=== PATIENT | male | born 1955 | race African-American/Black ===

== ENCOUNTER 2025-05-11 16:14 | Emergency (ER) | payer MEDICARE, SELFPAY ==
[2025-05-11] VITALS (19 sets, daily range): BP systolic 94–131; BP diastolic 58–87; PULSE 82–97; RESP 20–37; TEMP 36.6; O2SAT 92–98
--- NOTE | ~2025-05-11 | CT_ITS ---
EXAMINATION: CT brain mavis brown, 05/11/2025 16:00 CDT HISTORY: code stroke COMPARISON: No comparisons available. Technique: Axial images obtained of the brain without contrast. One or more of the following dose reduction techniques were used: automated exposure control, adjustment of the mA and/or kV according to patient size, use of iterative reconstruction technique. Findings: Motion artifact limits evaluation but there is no gross acute infarct or hemorrhage. No midline shift or mass effect. No extra-axial fluid collections.Sequelae of previous surgery noted with craniotomy changes and encephalomalacia within the right frontoparietal lobes bilaterally. Mastoid air cells unremarkable. Sinuses and orbits unremarkable. No acute fracture. No significant facial or scalp soft tissue swelling evident. No radiopaque foreign body is seen. Impression: 1. Limited study. No acute hemorrhage or infarct identified Reviewed, dictated and finalized at location P. Impression: 1. Limited study. No acute hemorrhage or infarct identified
--- NOTE | ~2025-05-11 | XR_ITS ---
EXAMINATION: XR chest 1V portable COMPARISON: No comparisons available. HISTORY: code stroke FINDINGS: The lungs are clear, no effusion. No pneumothorax. Moderate cardiomegaly. Mediastinal and hilar contours are within normal limits. Bony thorax no acute abnormality. Miscellaneous: Left pacemaker. Impression: CHF Reviewed, dictated and finalized at location P. Impression: CHF
--- NOTE | ~2025-05-11 | CT_ITS ---
EXAMINATION: CTA brain carotid, 05/11/2025 17:25 CDT HISTORY: cva, r deficits COMPARISON: No comparisons available. TECHNIQUE: CTA scan with 3D Reconstructions of the brain and neck was performed with contrast Isovue 300, 92cc injected IV. One or more of the following dose reduction techniques were used: automated exposure control, adjustment of the mA and/or kV according to patient size, use of iterative reconstruction technique. Unless otherwise stated, incidental findings do not require dedicated follow up imaging FINDINGS: CTA brain: The noncontrast images demonstrate no hemorrhage. Visualized brain parenchyma and optic globes appear unremarkable with encephalomalacia redemonstrated involving the right and left frontal and parietal lobes with associated craniotomy changes Motion artifact limits evaluation. The basilar artery appears unremarkable. The right posterior cerebral artery stroke predominantly by the algaaciq of Alex. The left posterior cerebral artery is fed predominantly by the algaaciq of Alex. The right petrous and cavernous ICA segments are limited by motion. The right M1, M2 segments and their branches are unremarkable. The right A1 and A2 segments are unremarkable. The left petrous and cavernous ICA segments are limited by motion. Left M1, M2 segments and their branches are unremarkable. The left A1 and A2 segments are unremarkable. CTA NECK: The soft tissues appear unremarkable. Motion artifact limits evaluation. Lung apices demonstrate no acute process. No sclerotic or lytic lesions are identified. Moderate degenerative changes of the cervical spine. No gross sinusitis. Motion artifact limits evaluation. The visualized cervical segments of the vertebral arteries appear grossly unremarkable, the left vertebral artery appears dominant Right CCA unremarkable. Right ICA 10% stenosis from calcified plaque. Left CCA unremarkable. Left proximal ICA limited but no critical stenosis identified. IMPRESSION: 1. Limited study. No critical stenosis or occlusion identified. No gross aneurysm. 2. Sequelae of previous surgery involving the brain detailed above. If there is concern for a parenchymal process contrast-enhanced MRI is recommended Reviewed, dictated and finalized at location P. IMPRESSION: 1. Limited study. No critical stenosis or occlusion identified. No gross aneury sm. 2. Sequelae of previous surgery involving the brain detailed above. If there is concern for a parenchymal process contrast-enhanced MRI is recommended
--- NOTE | 2025-05-11 16:34 | ED.NEUROSD ---
HPI - Neuro Symptoms/Deficit General Chief Complaint: Suspected CVA Stated Complaint: code stroke Time Seen by Provider: 05/11/25 16:16 Source: EMS Mode of arrival: EMS Limitations: altered mental status History of Present Illness HPI Narrative: This is a 70 yo male with history of CVA who presents the ED for altered mental status. Per EMS, patient was at rehab facility and was found to have altered mental status with new right-sided deficits to his face. His last known well was approximately 1330 (3 hours ago). Patient apparently a recent stroke which he is in rehab for at this time. This occurred at [facility]. He is currently on Eliquis for this. History is otherwise limited at this time due to patient's altered mental status. Related Data Allergies Allergy/AdvReac Type Severity Reaction Status Date / Time cephalexin AdvReac Unknown Unknown Verified 05/11/25 19:50 Review of Systems Review of Systems: ROS unobtainable: Yes unobtainable due to mental status Exam Narrative: APPEARANCE: No acute distress, nontoxic, resting in bed EYES: EOMI HEENT: Normocephalic, atraumatic, OMM RESPIRATORY: No respiratory distress Clear to auscultation bilaterally with no rhonchi wheezing or rales. CARDIOVASCULAR: Regular rate and rhythm without murmurs rubs or gallops. ABDOMINAL: Obese. Soft, nontender, nondistended, no rebound or guarding MUSCULOSKELETAl: Moves all extremities. No clubbing, cyanosis or edema. NEURO: Awake, facial droop with forehead involvement right. Unable to follow commands due to altered mental status. Oriented x1. NIHSS 15 buty somewhat limited due to inability to participate in exam SKIN:: Warm, dry. No rashes lesions or abrasions PSYCHIATRIC: Normal affect/mood, Course Vital Signs Vital signs: Vital Signs Pulse Rate 94 05/11/25 16:40 Respiratory Rate 20 05/11/25 16:40 Blood Pressure 98/67 L 05/11/25 16:40 Pulse Oximetry 96 05/11/25 16:40 Temperature 98.4 F 05/12/25 09:15 Pulse Rate 79 05/12/25 09:15 Respiratory Rate 23 H 05/12/25 09:15 Blood Pressure 103/58 L 05/12/25 09:15 Pulse Oximetry 95 05/12/25 09:15 Oxygen Delivery Room Air 05/11/25 16:43 MDM - Neuro Symptoms/Deficit MDM Narrative Medical decision making narrative: 70-year-old male presenting from rehab concerns for altered mental status and new onset stroke. On initial evaluation, patient was alert oriented x1 able to state his name not able to state anything beyond the word yes. He did have right-sided deficit. Patient is not a candidate for thrombolysis due to current eliquis treatment as well as recent stroke 11 days ago Discussed the case with Dr. Campa, stroke neurologist at [facility], did not think that patient required tertiary care, agrees that he is not a candidate for thrombolysis. On further discussion with family, the right-sided deficit may be baseline due to the recent stroke. As patient is on Eliquis he will not be given any additional antiplatelet medications at this time. I did reach out to neurology, Dr. Herrera, neurology, did agree that patient needed to be admitted but noted that there will be no neurology coverage tomorrow. I discussed this with the hospitalist and they will not admit the patient without neurology coverage at this time. Because of this, patient will require transfer for Neurology evaluation. Patient will be transferred to [facility] with Dr. Campa as the accepting physician and is currently pending bed availability. Of note, patient was found to have a leukocytosis at 14.6. UA was clear. He does have a decubitus ulcer which may be a potential source of infection. He was given vanc/Zosyn for prophylaxis of metabolic encephalopathy due to potential infection. Patient signed out to Dr. Lombardi pending transfer. CRITICAL CARE Indication: Severe encephalopathy, stroke Time type: intermittent I provided a total of 35 minutes of critical care excluding separately billable procedures. This includes time w/ EMS, initial bedside evaluation, reviewing old records, review of testing done while under my care, discussion w/ the family, nurses, managed services sales consultant and guiding the patient?s care while in the emergency department. Differential Diagnosis Differential diagnosis: Likely delirium, subarachnoid hemorrhage and cerebrovascular accident Medical Records Attestation: I reviewed the patient's medical records. Lab Data Attestation: I reviewed the patient's lab results. 05/11/25 16:48 05/12/25 08:20 Labs: Lab Results 05/11/25 05/11/25 05/11/25 Range/Units 16:48 17:04 18:14 WBC 14.5 H (4.5-10.0) K/mm3 RBC 3.82 L (4.6-6.20) M/mm3 Hgb 10.8 L (14.0-18.0) g/dL Hct 33.6 L (42.0-52.0) % MCV 88.0 (80-100) fl MCH 28.3 (26-34) pg MCHC 32.1 (32-36) g/dl RDW 12.5 (11.5-14.5) % Plt Count 313 (150-375) k/mm3 MPV 8.9 (7.4-10.4) fl Immature Gran % (Auto) 0.8 H (0-0.5) % Neut % (Auto) 79.4 H (45.5-73.1) % Lymph % (Auto) 8.5 L (18.3-44.2) % Lucas % (Auto) 10.3 H (2.6-8.5) % Eos % (Auto) 0.6 (0-4.4) % Baso % (Auto) 0.4 (0.2-1.2) % Lymph # (Auto) 1.23 (0.9-3.2) K/mm3 Lucas # (Auto) 1.5 H (0.1-0.6) K/mm3 Eos # (Auto) 0.1 (0-0.3) K/mm3 Baso # (Auto) 0.1 (0.0-0.1) K/mm3 Abs Immat Gran (auto) 0.11 H (0.00-0.031) K/mm3 Absolute Neuts (auto) 11.5 H (1.3-6.7) K/mm3 Absolute Nucleated RBC 0.000 (0.0-0.012) K/mm3 Nucleated RBC % 0.0 (0.0-0.2) % PT 19.5 H (11.1-14.7) Seconds INR 1.7 APTT 39.9 H (22.3-36.8) Seconds Sodium 135 L (137-145) mmol/L Potassium 3.9 (3.4-5.0) mmol/L Chloride 100 (98-107) mmol/L Carbon Dioxide 31 H (22-30) mmol/L Anion Gap 4 (4-12) mmol/L BUN 19 (9-20) mg/dL Creatinine 0.89 0.90 (0.7-1.3) mg/dL Estim Creat Clear Calc Not Reportable Not Reportable Estimated GFR > 60 > 60 (59 - ) Glucose 120 H (65-110) mg/dL Lactic Acid (0.7-2.0) mmol/L Calcium 9.5 (8.4-10.2) mg/dL Total Bilirubin 1.1 (0.2-1.3) mg/dL AST 41 (17-59) U/L ALT 13 (6-50) U/L Alkaline Phosphatase 131 H (38-126) U/L Troponin I 0.025 (0.000-0.034) ng/mL Total Protein 6.7 (6.3-8.2) g/dL Albumin 3.0 L (3.5-5.1) g/dL Urine Color Yellow (Yellow) Urine Appearance Clear (Clear) Urine pH 5.5 (5.0-9.0) Ur Specific [place] 1.034 (1.001-1.035) Urine Protein Negative (Negative) mg/dL Urine Glucose (UA) 3+ H (Negative) mg/dL Urine Ketones Negative (Negative) mg/dL Ur Blood (Man) Negative (Negative) Urine Nitrate Negative (Negative) Urine Bilirubin Negative (Negative) Urine Urobilinogen 2.0 H (<2.0) mg/dL Leukocyte Esterase Rfl Negative (Negative) RAMEZ/UL 05/11/25 05/12/25 Range/Units 19:03 08:20 WBC (4.5-10.0) K/mm3 RBC (4.6-6.20) M/mm3 Hgb (14.0-18.0) g/dL Hct (42.0-52.0) % MCV (80-100) fl MCH (26-34) pg MCHC (32-36) g/dl RDW (11.5-14.5) % Plt Count (150-375) k/mm3 MPV (7.4-10.4) fl Immature Gran % (Auto) (0-0.5) % Neut % (Auto) (45.5-73.1) % Lymph % (Auto) (18.3-44.2) % Lucas % (Auto) (2.6-8.5) % Eos % (Auto) (0-4.4) % Baso % (Auto) (0.2-1.2) % Lymph # (Auto) (0.9-3.2) K/mm3 Lucas # (Auto) (0.1-0.6) K/mm3 Eos # (Auto) (0-0.3) K/mm3 Baso # (Auto) (0.0-0.1) K/mm3 Abs Immat Gran (auto) (0.00-0.031) K/mm3 Absolute Neuts (auto) (1.3-6.7) K/mm3 Absolute Nucleated RBC (0.0-0.012) K/mm3 Nucleated RBC % (0.0-0.2) % PT (11.1-14.7) Seconds INR APTT (22.3-36.8) Seconds Sodium (137-145) mmol/L Potassium (3.4-5.0) mmol/L Chloride (98-107) mmol/L Carbon Dioxide (22-30) mmol/L Anion Gap (4-12) mmol/L BUN (9-20) mg/dL Creatinine 0.90 (0.7-1.3) mg/dL Estim Creat Clear Calc 96 Estimated GFR > 60 (59 - ) Glucose (65-110) mg/dL Lactic Acid 1.5 (0.7-2.0) mmol/L Calcium (8.4-10.2) mg/dL Total Bilirubin (0.2-1.3) mg/dL AST (17-59) U/L ALT (6-50) U/L Alkaline Phosphatase (38-126) U/L Troponin I (0.000-0.034) ng/mL Total Protein (6.3-8.2) g/dL Albumin (3.5-5.1) g/dL Urine Color (Yellow) Urine Appearance (Clear) Urine pH (5.0-9.0) Ur Specific [place] (1.001-1.035) Urine Protein (Negative) mg/dL Urine Glucose (UA) (Negative) mg/dL Urine Ketones (Negative) mg/dL Ur Blood (Man) (Negative) Urine Nitrate (Negative) Urine Bilirubin (Negative) Urine Urobilinogen (<2.0) mg/dL Leukocyte Esterase Rfl (Negative) RAMEZ/UL Imaging Data Attestation: I personally reviewed and interpreted this imaging study as follows: Radiologist's impression: Impressions Head CT 05/11/25 16:26 Impression: 1. Limited study. No acute hemorrhage or infarct identified Chest X-Ray 05/11/25 17:31 Impression: CHF Head/Neck CTA 05/11/25 17:37 IMPRESSION: 1. Limited study. No critical stenosis or occlusion identified. No gross aneurysm. 2. Sequelae of previous surgery involving the brain detailed above. If there is concern for a parenchymal process contrast-enhanced MRI is recommended Discharge Plan Discharge Clinical Impression: Facial droop Altered mental status Qualifiers: Altered mental status type: unspecified Qualified Code(s): R41.82 - Altered mental status, unspecified Leukocytosis Qualifiers: Leukocytosis type: unspecified Qualified Code(s): D72.829 - Elevated white blood cell count, unspecified Patient Disposition: Acute Care Hospital Condition: Serious Patient Language: Turkmen Follow-up/Referrals: Clair,Kelly [Other]
--- NOTE | 2025-05-11 16:40 | ECG_ITS ---
Test Date: 2025-05-11 16:40:49 Measurements Intervals [place] Rate: 85 P: 0 PA: 0 QRS: 146 QRSD: 175 T: -12 QT: 429 QTc: 511 Interpretive Statements ELECTRONIC VENTRICULAR PACEMAKER WITH FUSION COMPLEX BASELINE ARTIFACT- I, II, III, AVR, AVL, AVF, V1-V6 NO FURTHER INTERPRETATION IS POSSIBLE ATYPICAL ECG No previous ECG available for comparison Electronically Signed On 05-12-2025 08:30:15 CDT by Jalen Jones D.O.
[2025-05-11 16:53] LABS: Hematocrit 33.6 % (42.0-52.0); Hemoglobin 10.8 g/dL (14.0-18.0); Immature Granulocyte Percent A 0.8 % (0-0.5); Lymphocytes Absolute Auto 1.23 K/mm3 (0.9-3.2); Mean Corpuscular HGB Conc 32.1 g/dl (32-36); Mean Corpuscular Hemoglobin 28.3 pg (26-34); Mean Corpuscular Volume 88.0 fl (80-100); Nucleated Red Blood Cells Absolute Auto 0.000 K/mm3 (0.0-0.012); Nucleated Red Blood Cells Perc 0.0 % (0.0-0.2); Platelet Count Result 313 k/mm3 (150-375); Red Blood Count 3.82 M/mm3 (4.6-6.20); White Blood Count 14.5 K/mm3 (4.5-10.0)
[2025-05-11 17:08] LABS: Alanine Aminotransferase 13 U/L (6-50); Albumin Level 3.0 g/dL (3.5-5.1); Alkaline Phosphatase 131 U/L (38-126); Anion Gap 4 mmol/L (4-12); Aspartate Amino Transferase 41 U/L (17-59); Bilirubin,Total 1.1 mg/dL (0.2-1.3); Blood Urea Nitrogen 19 mg/dL (9-20); Calcium 9.5 mg/dL (8.4-10.2); Carbon Dioxide 31 mmol/L (22-30); Chloride 100 mmol/L (98-107); Estimated Glomerular Filt Rate > 60; Glucose 120 mg/dL (65-110); Potassium 3.9 mmol/L (3.4-5.0); Sodium 135 mmol/L (137-145); Total Protein 6.7 g/dL (6.3-8.2)
[2025-05-11 17:09] LABS: INR 1.7; Prothrombin Time 19.5 Seconds (11.1-14.7)
[2025-05-11 17:10] LABS: Partial Thromboplastin Time 39.9 Seconds (22.3-36.8)
[2025-05-11 17:18] LABS: Troponin I 0.025 ng/mL (0.000-0.034)
[2025-05-11 17:23] LABS: Estimated Glomerular Filt Rate > 60
--- OUTSIDE RECORDS SUMMARY | 2025-05-11 17:38 | XMS_ITS | Clinical Summary ---
Author Organization [facility] Address [address] [place] [address] Care Team Providers Care Community Service Coordinator Name Role Phone Daniel Navarrete Primary Care Provider Source Comments [facility],non-owned Affiliates and Associated Physician Practices is amultiple site organization consisting of ambulatory clinics and hospital sitesin [place], [place], [place] and [place]. This disclosure is being madepursuant to the Care Everywhere program and may not contain all information available regarding this patient. Last updated 18.[facility] Allergies No known active allergies Medications * Be aware that medications may not be up to date on this document. Alwaysverify current medications with the patient. lisinopril (PRINIVIL; ZESTRIL) 40 MG tablet Take 40 mg by mouth DAILY. 7 Active hydroCHLOROthi azide (MICROZIDE) 12.5 MG capsule Take 12.5 mg by mouth DAILY. 7 Active aspirin (ASPIRIN) 81 MG tablet Take 81 mg by mouth DAILY. 7 Active amLODIPine (NORVASC) 10 MG tablet Take 10 mg by mouth DAILY. 7 Active tamsulosin (FLOMAX) 0.4 MG capsule Take 0.4 mg by mouth once daily Active metoprolol tartrate (LOPRESSOR) 25 MG tablet Take 25 mg by mouth 2 times daily 9 Active levETIRAcetam (KEPPRA) 500 MG tablet Take 1 tablet by mouth every 12 hours 60 tablet 2 0 Active acetaminophen (TYLENOL) 325 MG tablet Take 2 tablets by mouth every 6 hours as needed for Fever or Pain Maximum allowable Acetaminophen amount = 4 Grams (4000 mg) / 24 hours. 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 Malignant neoplasm of prostate 05/15/2019 Claustrophobia 12/27/2016 Essential hypertension 01/22/2014 CHUY (obstructive sleep apnea) 01/22/2014 Social History Tobacco Use Types Packs/Day Years Used Date Smoking Tobacco: Former Smokeless Tobacco: Never Alcohol Use Standard Drinks/Week Comments No 0 (1 standard drink = 0.6 oz pur e alcohol) Sex and Gender Information Value Date Recorded Sex Assigned at Not on file Legal Sex Male 5:13 PM TEXTILE CONSERVATOR Gender Identity Not on file Sexual Orientation Not on file Last Filed Vital Signs Vital Sign Reading Time Taken Comments Blood Pressure 147/82 08/04/2020 12:09 PM TEXTILE CONSERVATOR Pulse 85 08/04/2020 4:27 PM TEXTILE CONSERVATOR Temperature 36.4 C (97.6 F) 08/04/2020 12:09 PM TEXTILE CONSERVATOR Respiratory Rate 20 08/04/2020 12:09 PM TEXTILE CONSERVATOR Oxygen Saturation 95% 08/04/2020 12:09 PM TEXTILE CONSERVATOR Inhaled Oxygen Concentration - - Weight 167.8 kg (370 lb) 08/04/2020 12:09 PM TEXTILE CONSERVATOR Height 172.7 cm (5' 8) 08/04/2020 12:09 PM TEXTILE CONSERVATOR Body Mass Index 56.26 08/04/2020 12:09 PM TEXTILE CONSERVATOR Plan of Treatment Health Maintenance Due Date Last Done Comments COLOGUARD (AGES 45-75) - COLON CA SCREENING 1953 COLON MONITORING 1953 COLONOSCOPY - COLON CA SCREENING 1953 CT COLONOGRAPHY - COLON CA SCREENING 1953 Colorectal Cancer Screening 1953 FIT - COLON CA SCREENING 1953 FLEX SIG - COLON CA SCREENING 1953 LIPID TESTING 1953 HEPATITIS C SCREENING 03/03/1971 DTAP/TDAP/TD VACCINES (1 - Tdap) 1972 PNEUMOCOCCAL VACCINE 50+ (1 of 1 - PCV) 2003 ZOSTER VACCINE (1 of 2) 2003 Respiratory Syncytial Virus (RSV) Vaccine Pt: or over 60 yrs (1 - Risk 60-74 years 1-dose series) 2013 AAA SCREENING 2018 SCREENING FOR DIABETES 08/04/2023 08/04/2020, 2019 DEPRESSION SCREENING 07/24/2024 COVID-19 VACCINE ( - season) 2025 INFLUENZA VACCINE (#1) 2025 0, 04/19/2019, 06/04/2018, Additional history exists HEPATITIS B VACCINE Aged Out No longe r eligible based on patient's age to complete this topic HIB VACCINE Aged Out No longer eligi ble based on patient's age to complete this topic HPV VACCINE Aged Out No longer eligi ble based on patient's age to complete this topic MENINGOCOCCAL (Group B) VACCINE SHARED DECISION-MAKING Aged Out No longer eligible based on patient's age to complete this topic MENINGOCOCCAL GROUPS A/C/Y/W VACCINE Aged Out No longer eligible based on patient's age to complete this topic Procedures Procedure Name Priority Date/Time Associated Diagnosis Comments BASIC METABOLIC PANEL (CALCIUM TOTAL) STAT 08/04/2020 3:15 PM TEXTILE CONSERVATOR from Last 3 Months or Most Recently Relevant to Health Maintenance Results * BASIC METABOLIC PANEL (CALCIUM TOTAL) (08/04/2020 3:15 PM TEXTILE CONSERVATOR) BUN 10 7 - 26 mg/dL 08/04/2020 3:59 PM TEXTILE CONSERVATOR [facility] Creatinine 0.8 0.6 - 1.2 mg/dL 08/04/2020 3:59 PM TEXTILE CONSERVATOR [facility] Sodium 142 136 - 145 mmol/L 08/04/2020 3:59 PM TEXTILE CONSERVATOR [facility] Potassium 3.7 3.5 - 4.5 mmol/L 08/04/2020 3:59 PM TEXTILE CONSERVATOR [facility] Chloride 105 98 - 107 mmol/L 08/04/2020 3:59 PM [facility] CO2 25 22 - 29 mmol/L 08/04/2020 3:59 PM [facility] Glucose 96 70 - 115 mg/dL 08/04/2020 3:59 PM [facility] Calcium 9.1 8.4 - 10.2 mg/dL 08/04/2020 3:59 PM [facility] Anion Gap 16 8 - 18 08/04/2020 3:59 PM [facility] BUN/Creatinine Ratio 13 7 - 23 08/04/2020 3:59 PM [facility] Osmolality Calculated 293 270 - 300 mOsm/kg 08/04/2020 3:59 PM [facility] eGFR >60 >60 mL/min/1.7 3 m2 08/04/2020 3:59 PM [facility] Blood BLOOD SPECIMEN / Unknown Venipuncture / Unknown 08/04/2020 3:15 PM TEXTILE CONSERVATOR 08/04/2020 3:29 PM [facility] Berta Bacon MD LAB - CHEMISTRY ORDERABLES Final Result [facility] [address] [place] [address], [facility] [phone] from Last 3 Months or Most Recently Relevant to Health Maintenance Insurance MEDICARE [employer] Advance Directives * Full Code (Latest Code Status on File) Date Activated Date Inactivated Comments 09/22/2019 8:34 PM 09/24/2019 12:32 PM Care Teams Community Service Coordinator Relationship Specialty Start Date End Date Daneil Navarrete DO PCP - General 01/17/17
--- OUTSIDE RECORDS SUMMARY | 2025-05-11 17:38 | XMS_ITS | Clinical Summary ---
Author Organization [place] [id number] [facility] Address [address] [place] [address] Care Team Providers Care Head Shipper Name Role Phone Cb Waters MD Primary Care Provider + Timothy Smith MD Unavailable [phone] Alen Gold MD Unavailable Allergies Active Allergy Reactions Criticality Noted Date Comments Cephalexin Other (See comments) Low 03/05/2021 Possible mild elevated LFTS and alk phosphate 2/2 keflex that was down-trending after discontinuation. Medications tamsulosin (FLOMAX) 0.4 mg extended release capsule Take 0.8 mg by mouth nightly Active albuterol HFA (PROVENTIL HFA,VENTOLIN HFA,PROAIR HFA) 90 mcg/actuation inhaler Inhale 2 puffs every 6 (six) hours as needed 0 Active famotidine (PEPCID) 20 mg tablet Take 1 tablet (20 mg total) by mouth 2 (two) times a day 60 tablet 1 1 Active amLODIPine (Norvasc) 10 mg tabletIndication s:hypertension Take 10 mg by mouth daily. Indications: high blood pressure Active multivitamin tablet,chewableI ndications:Vitam in Deficiency Prevention Take 1 tablet by mouth daily. Indications: treatment to prevent vitamin deficiency Active ondansetron (ZOFRAN) 4 mg tablet Take 1 tablet (4 mg total) by mouth 3 (three) times a day as needed for nausea or vomiting 20 tablet 1 Active calcium carbonate-vitami n D3 250-125 mg-unit tablet 1 tablet Activ e apixaban (ELIQUIS) 5 mg tabletIndication s:atrial fibrillation Take 1 tablet (5 mg total) by mouth every 12 (twelve) hours DO NOT TAKE UNTIL YOUR FOLLOW UP APPOINTMENT WITH . 60 tablet 1 1 Active acetaminophen (TYLENOL) 325 mg tabletIndication s:Fever,Pain Take 2 tablets (650 mg total) by mouth every 4 (four) hours as needed for pain 30 tablet 1 Active furosemide (LASIX) 20 mg tabletIndication s:Edema Take 3 tablets (60 mg total) by mouth daily 90 tablet 11 1 Active levETIRAcetam (KEPPRA) 1,000 mg tablet Take 1 tablet (1,000 mg total) by mouth 2 (two) times a day 60 tablet 11 1 Active metoprolol tartrate (LOPRESSOR) 25 mg immediate release tablet Take 1 tablet (25 mg total) by mouth 2 (two) times a day 60 tablet 11 1 Active loperamide (IMODIUM) 2 mg capsule Take 1 capsule (2 mg total) by mouth 3 (three) times a day as needed for diarrhea 30 capsule 1 Active insulin lispro (HumaLOG, ADMELOG) 100 unit/mL vial for injectionIndicat ions:Diabetes Mellitus Inject 1-5 Units under the skin 3 (three) times a day with meals 10 mL 1 Active Additional Information Patient not taking.Reported on 01/06/2022 mupirocin (BACTROBAN) 2 % ointment 1 lux, Ointment, Nasal BID, 15 gm, 0 Refill(s), 5 days prior to surgery and end day prior; each nares 1 Active potassium chloride ER (KLOR-CON) 20 mEq CR tabletIndication s:deficiency Take 20 mEq by mouth 2 (two) times a day. Indications: deficiency Active doxycycline (VIBRAMYCIN) 100 mg capsuleIndicatio ns:Prophylaxis, Medical Take 100 mg by mouth 2 (two) times a day. Indications: Prophylaxis, Medical Active metOLazone (ZAROXOLYN) 2.5 mg tabletIndication s:hypertension Take 2.5 mg by mouth daily. Indications: high blood pressure Active furosemide (LASIX) 20 mg tabletIndication s:hypertension Take 20 mg by mouth 2 (two) times a day. Per office note of 04/13/21/Dr Jt Connell RN Indications: high blood pressure 1 Active losartan (COZAAR) 100 mg tabletIndication s:hypertension Take 100 mg by mouth daily. per office visit note of 04/13/21/Dr Jt Connell RN Indications: high blood pressure 1 Active losartan (COZAAR) 100 mg tabletIndication s:chronic heart failure,hyperten jaya Take 100 mg by mouth daily. Indications: chronic heart failure, high blood pressure Active ammonium lactate (AMLACTIN) 12 % creamIndications :Dry Skin Apply 1 application topically as needed for dry skin. Rx # [id number] in home 05/10/21 per Kelly Huntley PTA entered by Sailaja Connell RN Indications: dry skin 1 Active diazePAM (VALIUM) 5 mg tablet Take 1 tablet (5 mg total) by mouth every 6 (six) hours as needed for anxiety (prior to radiation appointments) 40 tablet 1 Active Active Problems Problem Noted Date Diagnosed Date Cellulitis of left lower extremity 02/25/2021 Brain cancer 01/21/2021 Seizure 01/21/2021 Overview (01/21/2021): Assessment & Plan (01/21/2021 11:12 AM CDT): Continue home medications Will be on IV Keppra home dosing 1000 mg b.i.d. for history of seizures Benign neoplasm of cerebral meninges 03/11/2020 Malignant neoplasm of prostate 05/15/2019 Cancer Staging:Clinical:Stage IIB(cT1c, cN0, cM0, PSA: 5.4, Grade Group: 2) - Signed by Pete Craft MD on 04/23/2021 Elevated PSA 04/12/2019 Malignant meningioma 01/04/2017 Cancer Staging:Pathologic:WHO Grade II- Signed by Pete Craft MD on 04/23/2021 Assessment & Plan (01/21/2021 11:01 AM CDT): -patient comes in seizures absence type due to possibly mass effect of the large brain mass lesion seen on CT scan this has significantly increased in size compared to the past . There is surrounding mass effect and vasogenic edema. -patient has been accepted by Neurosurgery at [facility]. Waiting on a bed. -daily gets transferred need to be on IV Decadron for vasogenic edema, IV Decadron has been started. -patient is hemodynamically stable. -patient is neurological awake alert. Will need to monitor for signs of neurological decompensation. Claustrophobia 12/27/2016 Neoplasm of brain 12/26/2016 Wears eyeglasses 12/26/2016 Brain mass 12/01/2016 Essential hypertension 01/22/2014 Assessment & Plan (01/21/2021 11:12 AM CDT): Patient not taking amlodipine. He is on angiotensin receptor marisol and metoprolol will continue those. Obese 01/22/2014 CHUY (obstructive sleep apnea) 01/22/2014 Personal history of arthritis 01/22/2014 Immunizations Immunization Administration Dates Next Due Influenza, Quadrivalent, Spl it, Preservative Free, Intramuscular 04/19/2019,06/16/2015 Influenza, Trivalent, High D ose, Split, Preservative Free, Intramuscular 06/04/2018 Influenza, Trivalent, Preservative Free, Intramu scular 05/27/2014 Medical History Medical History Date Comments Hypertension Former smoker quit 1998 Seizures (HCC) Prostate cancer (HCC) 2001 Atrial fibrillation (HCC) Parasagittal meningioma (HCC) Stroke (HCC) 2008 Sleep apnea CHUY (obstructive sleep apnea) BPH (benign prostatic hyperplasia) Cellulitis of left leg Bilateral lower extremity edema Family History Medical History Relation Name Comments Hypertension Brother Multiple sclerosis Daughter Heart attack Father Hypertension Father during childbirth Mother Heart attack Paternal Grandmother Cancer Sister uterine cancer Hypertension Sister Stroke Son Relation Name Status Comments Brother Daughter Alive Father (Age 64 ) Mother (Age 28 ) Paternal Grandmother Sister (Age 64) Son Alive Social History Tobacco Use Types Packs/Day Years Used Date Smoking Tobacco: Former Cigarettes 1.5 30 1 969 - 1998 Smokeless Tobacco: Never Tobacco Cessation:Counseling Given: No Alcohol Use Standard Drinks/Week Comments Defer 0 (1 standard drink = 0.6 oz pur e alcohol) Social Connection and Isolation Panel Answer Date Recorded In a typical week, how many times do you talk on the phone with family, friends, or neighbors? More than three times a week 02/26/2021 How often do you get togethe r with friends or relatives? More than three times a week 02/26/2021 How often do you attend chur ch or scientologist services? More than 4 times per year 02/26/2021 Do you belong to any clubs o r organizations such as baptist groups, unions, fraternal or athletic groups, or school groups? Yes 02/26/2021 How often do you attend meet ings of the clubs or organizations you belong to? More than 4 times per year 02/26/2021 Are you , , di vorced, , never , or living with a partner? 02/26/2021 AUDIT-C Answer Date Recorded Q1: How often do you have a drink containing alc ohol? Never 03/25/2021 Average Number of Drinks Not on file 021 Frequency of Binge Drinking Not on file 08/2020 Overall Financial Resource Strain (CARDIA) Answe r Date Recorded How hard is it for you to pa y for the very basics like food, housing, medical care, and heating? Not hard at all 02/26/2021 Hunger Vital Sign Answer Date Recorded Within the past 12 months, y ou worried that your food would run out before you got the money to buy more. Never true 02/27/20 21 Within the past 12 months, t he food you bought just didn't last and you didn't have money to get more. Never true 02/26/2021 PRAPARE - Transportation Answer Date Re corded In the past 12 months, has l ack of transportation kept you from medical appointments or from getting medications? No 12/2020 In the past 12 months, has l ack of transportation kept you from meetings, work, or from getting things needed for daily living? No 02/26/2021 Housing Stability Vital Sign Answer Alan e Recorded In the last 12 months, was t here a time when you were not able to pay the mortgage or rent on time? No 02/26/2021 In the last 12 months, how many places have you lived? 1 02/26/2021 In the last 12 months, was t here a time when you did not have a steady place to sleep or slept in a half-way (including now)? No 02/26/2021 Personal Safety Answer Date Recorded Getting School Help Needed Not on file 07/15 Sex and Gender Information Value Date Recorded Sex Assigned at Not on file Legal Sex Male 2:54 AM COVERAGE SPECIALIST Gender Identity Not on file Sexual Orientation Straight 02/21/2020 1: 08 PM CDT Obstetrics History Last Filed Vital Signs Vital Sign Reading Time Taken Comments Blood Pressure 155/94 08/06/2021 11:53 AM COVERAGE SPECIALIST Pulse 97 08/06/2021 11:53 AM COVERAGE SPECIALIST Temperature 36.5 C (97.7 F) 08/06/2021 11:53 AM COVERAGE SPECIALIST Respiratory Rate 18 05/24/2021 10:59 AM CDT Oxygen Saturation 98% 08/06/2021 11:53 AM COVERAGE SPECIALIST Inhaled Oxygen Concentration - - Weight 152 kg (335 lb) 02/02/2023 11:07 AM CDT Height 170.2 cm (5' 7) 02/02/2023 11:07 AM CDT Body Mass Index 52.47 02/02/2023 11:07 AM CDT Plan of Treatment Health Maintenance Due Date Last Done Comments Colon Cancer Screening-Colonoscopy 1955 Depression Screening 1955 DTaP/Tdap/Td Vaccine (1 - Tdap) 1964 Hepatitis B Screening 1971 Pneumococcal vaccine 65+ (1 of 1 - PCV) 2003 Zoster Vaccine (1 of 2) 2003 Well Visit 65+ 2018 Fall Risk Assessment 04/26/2022 04/26/2021, 03/16/20 21 Prostate Cancer Screening-PSA 11/05/2024, 07/12/2021, 12/10/2020 Covid-19 Vaccine (3 - 2024-2 6 season) 2025 10/24/2020, 10/03/2020 Influenza Vaccine (#1) 2025 0, 04/19/2019, 06/04/2018, Additional history exists Hepatitis C Screening Completed 03/05/2021, 021 Abdominal Aortic Aneurysm (A AA) Screen Completed 06/13/2023, 05/09/2020, 03/04/2019 Medical Devices Implanted Type Area Principal Cyber Engineer Device Identifier Shelf Expiration Date Model / Serial / Lot [employer] [id number] Alloderm 10x5cm Allograft Regenerative Freeze Dried Medium Matrix - [id number] - [id number] Implanted:Qty: 1 on 03/12/2021 by Timothy Smith MD at [facility] Brain [employer] 09/20/2022 [id number] / [id number] / Leticia Craniomaxillofacial [id number] Mesh 1.5 1.7 Preform Stiff R - [id number] Implanted:Qty: 1 on 03/12/2021 by Timothy Smith MD at [facility] Head Friendly Craniomaxillofacial [id number] / / Friendly Craniomaxillofacial [id number] Un3 1.5mm 4mm Self Drill Craniomaxillofacial Screw Bone - [id number] Implanted:Qty: 27 on 03/12/2021 by Timothy Smith MD at [facility] Head Leticia Craniomaxillofacial [id number] / / Procedures Procedure Name Priority Date/Time Associated Diagnosis Comments PSA DIAGNOSTIC Routine 11/05/2022 9:55 AM CDT Prostate cancer (HCC) HEPATITIS PANEL, ACUTE STAT 03/05/2021 12:12 AM CDT from Last 3 Months or Most Recently Relevant to Health Maintenance Results * PSA diagnostic (11/05/2022 9:55 AM CDT) PSA-Total <0.10 <=5.40 ng/mL [facility] Comment: Interpretive Data AGE SEX REFERENCE INTERVAL 0 minutes-150 years Female None 0 minutes-49 years Male None 50-59 years Male 0-3.90 60-69 years Male 0-5.40 70-79 years Male 0-6.20 80-150 years Male 0-6.20 The Magnus PSA Total assay procedure was used. Results from different manufacturers or methods may not be comparable. Serial testing should be performed using the same method. Current interpretive data last revised 21. Testing performed by: [facility], [address] [place] [address]., [id number] Blood 11/05/2022 9:55 AM CDT 11/05/2022 10:19 AM CDT us Alen Gold MD LAB BLOOD ORDERABLES Final Res ult [facility] [address] [facility] Department [place] [address] * Hepatitis panel, acute (03/05/2021 12:12 AM CDT) Hep A IgM Nonreactive Nonreactive [facility] Comment: Interpretive Data: If Hep A IgM Ab is reported as Equivocal, a new sample should be drawn in two weeks for testing. Current interpretive data was last revised on 19. Hep B core IgM Nonreactive Nonreactive [facility] Comment: Interpretive Data If HepB Core IgM Ab is reported as Equivocal, a new sample should be drawn in two weeks for testing. Current interpretive data was last revised on 19. Hep C Ab Nonreactive Nonreactive [facility] Comment:Antibodies to HCV no t detected. Does NOT exclude the possibility of recent exposure to HCV. HepBsAg Nonreactive Nonreactive [facility] Blood specimen (specimen) 03/05/2021 12:12 AM CDT 03/05/2021 12:38 AM CDT Stone Matos MD LAB MICROBIOL OGY - GENERAL ORDERABLES Edited Result - Final [facility] Department [place] [address] from Last 3 Months or Most Recently Relevant to Health Maintenance Insurance MEDICARE IDPA MEDICARE IDPA MEDICARE HUMANA CLAIMS OFFICE MEDICARE MEDICARE HU[employer] CLAIMS OFFICE Advance Directives For more information, please contact: [phone] * Full Code (Latest Code Status on File) Date Activated Date Inactivated Comments 03/12/2021 7:12 PM 03/17/2021 12:49 AM * Full Code Date Activated Date Inactivated Comments 03/05/2021 7:19 AM 03/05/2021 11:05 PM * Full Code Date Activated Date Inactivated Comments 02/26/2021 8:25 AM 03/03/2021 8:25 PM * Full Code Date Activated Date Inactivated Comments 01/22/2021 10:37 AM 01/26/2021 5:37 PM * Full Code Date Activated Date Inactivated Comments 01/21/2021 12:43 PM 01/22/2021 1:25 AM Care Teams Head Shipper Relationship Specialty Start Date End Date [place] [address] PCP - General 12/10/20 Timothy [place] [address] Referring Physician Neurosurgery 04/23/21 Alen [place] [address] Radiation Oncologist Radiation Oncology 05/19/21
--- OUTSIDE RECORDS SUMMARY | 2025-05-11 17:38 | XMS_ITS | Encounter Summary ---
Author Organization [facility] Address [address] [place] [address] Phone Care Team Providers Care Casino Beverage Server Name Role Phone Cb Waters MD Primary Care Provider + Modesta Murphy MD Unavailable Timothy Smith MD Unavailable [phone] Alen Gold MD Unavailable [phone] Encounter Details Date Type Department Care Team (Late st Contact Info) Description 03/30/2021 Telephone [facility] [address] [place] [address] Manuela Raya RN Social History Tobacco Use Types Packs/Day Years Used Date Smoking Tobacco: Former Cigarettes 1.5 30 1 969 - 1998 Smokeless Tobacco: Never Alcohol Use Standard Drinks/Week Comments Defer 0 [...] week 02/26/2021 How often do you attend [facility] or roman catholic services? More than 4 times per year 02/26/2021 Do you belong to any clubs o r organizations such as mandaen groups, unions, fraternal or athletic groups, or [...] place to sleep or slept in a chcf (including now)? No 02/26/2021 Sex and Gender Information Value Date Recorded Sex Assigned at Not on file Legal Sex Male 2:54 AM SUBMARINE ADVISORY TEAM WATCH OFFICER Gender Identity Not on file Sexual Orientation Straight 02/21/2020 1: 08 PM CDT documented as of this encounter Plan of Treatment Not on file documented as of this encounter Visit Diagnoses Not on filedocumented in this encounter Care Teams Casino Beverage Server Relationship Specialty Start Date End Date Cb Waters MD [address] [place] [address] PCP - General 12/10/20 Modesta Murphy MD [address] [place] [address] Radiation Oncologist Radiation Oncology 04/23/2107/27/2 3 Timothy Smith MD [address] [place] [address] Referring Physician Neurosurgery 04/23/21 Alen Gold MD [address] [place] [address] Radiation Oncologist Radiation Oncology 05/19/21 documented as of this encounter
--- OUTSIDE RECORDS SUMMARY | 2025-05-11 17:38 | XMS_ITS ---
Author Organization [place] [id number] [facility] Address [address] [place] [address] Care Team Providers Care Maintenance Supervisor 2Nd Shift Name Role Phone Cb Waters MD Primary Care Provider + Timothy Smith MD Unavailable [phone] Alen Gold MD Unavailable [phone] Active Problems Problem Noted Date Diagnosed Date [...] -patient has been accepted by Neurosurgery at [facility]. Waiting on a bed. -daily gets transferred [...] apnea) 01/22/2014 Personal history of arthritis 01/22/2014 Current Treatment and Therapy Plans No current plan information found. Past Treatment and Therapy Plans No past plan information found. Radiation Treatments * Course C2_brain_202006/23/2021 - 08/10/2021 Treatment Period Energy Fraction Dose Fractions Total Dose Plans Planned BRAIN 06/23/2021 - 08/10/2021 180 33 / 5,940 Reference Points Delivered BRAIN 06/23/2021 - 08/10/2021 5,940 * Course C1 PROSTATE 201909/11/2019 - 06/14/2021 Treatment Period Energy Fraction Dose Fractions Total Dose Plans Planned PROSTATE 10/24/2019 - 06/14/2021 200 12 / 2,400 PROSTATE_SV 09/11/2019 - 06/14/2021 200 27 / 5,400 Reference Points Delivered PROSTATE 10/24/2019 - 06/14/2021 2,400 PROSTATE_SV 09/11/2019 - 06/14/2021 5,400 Lifetime Dose Tracking * Chemical Lifetime Dose Automatic Entry Manual Entr y DLP 7,746 mGycm 7,746 mGycm 0 mGycm
[2025-05-11 18:20] LABS: Add Urine Microscopic? NO; Appearance Urine Clear (Clear); Glucose Urine UA 3+ mg/dL (Negative); Leukocyte Esterase Ur Negative LEU/UL (Negative); Nitrate Urine Negative (Negative); Specific Grav Ur 1.034 (1.001-1.035)
[2025-05-11] MEDS: PIPERACILLIN/TAZOBACTAM SOD 4.5 GM in SODIUM CHLORIDE 0.9% IV 100 ML 200 ML IVPB (20:47)
--- NOTE | 2025-05-11 21:04 | ECG_ITS ---
Test Date: 2025-05-11 21:56:49 Measurements Intervals Celeste Rate: 86 P: 0 DC: 0 QRS: -23 QRSD: 104 T: 190 QT: 393 QTc: 471 Interpretive Statements ELECTRONIC VENTRICULAR PACEMAKER BASELINE ARTIFACT- I, II, III, AVR, AVF, V1-V3 NO FURTHER INTERPRETATION IS POSSIBLE ATYPICAL ECG No previous ECG available for comparison Electronically Signed On 05-12-2025 06:15:37 CDT by Jalen Jones D.O.
[2025-05-11] MEDS: VANCOMYCIN 1,250 MG/NS 250 ML 1,250 MG/250 ML BAG 166.67 MG IVPB ×2 (21:29→23:10)
[2025-05-12] VITALS (43 sets, daily range): BP systolic 103–119; BP diastolic 58–90; PULSE 76–95; RESP 16–40; TEMP 36.9; O2SAT 91–98
--- NOTE | 2025-05-12 00:01 | PC.NURSE ---
Report received from JOJO Vazquez. Assumed care of patient at this time. Patient changed, moved from room 3 to room 1 and transferred to a hospital bed.
[2025-05-12 08:44] LABS: Estimated CRCL calculation 96 ml/min; Estimated Glomerular Filt Rate > 60
[2025-05-12] MEDS: VANCOMYCIN 1,500 MG/NS 500 ML 1,500 MG/500 ML BAG 250 MG IVPB (09:14)
--- NOTE | 2025-05-12 11:25 | PC.NURSE ---
Shannen with pt logisitics at [facility] states there are still no beds at this time. Rn provided update regarding pt status and VS. Shannen states if anything with the pt changes to call at [phone]
[2025-05-12] MEDS: PIPERACILLIN/TAZOBACTAM SOD 3.375 GM in SODIUM CHLORIDE 0.9% IV 50 ML 100 ML IVPB (14:18)
--- NOTE | 2025-05-12 14:29 | ED_ITS ---
HPI - Neuro Symptoms/Deficit General Chief Complaint: Suspected CVA Stated Complaint: code stroke Time Seen by Provider: 05/11/25 16:16 Source: EMS Mode of arrival: EMS Limitations: altered mental status Related Data Allergies Allergy/AdvReac Type Severity Reaction Status Date / Time cephalexin AdvReac Unknown Unknown Verified 05/11/25 19:50 Course Vital Signs Vital signs: Vital Signs Pulse Rate 94 05/11/25 16:40 Respiratory Rate 20 05/11/25 16:40 Blood Pressure 98/67 L 05/11/25 16:40 Pulse Oximetry 96 05/11/25 16:40 Temperature 98.4 F 05/12/25 09:15 Pulse Rate 77 05/12/25 12:00 Respiratory Rate 21 H 05/12/25 12:00 Blood Pressure 104/67 05/12/25 11:03 Pulse Oximetry 94 05/12/25 11:30 Oxygen Delivery Room Air 05/11/25 16:43 MDM - Neuro Symptoms/Deficit Lab Data 05/11/25 16:48 05/12/25 08:20 Labs: Lab Results 05/11/25 05/11/25 05/11/25 Range/Units 16:48 17:04 18:14 WBC 14.5 H (4.5-10.0) K/mm3 RBC 3.82 L (4.6-6.20) M/mm3 Hgb 10.8 L (14.0-18.0) g/dL Hct 33.6 L (42.0-52.0) % MCV 88.0 (80-100) fl MCH 28.3 (26-34) pg MCHC 32.1 (32-36) g/dl RDW 12.5 (11.5-14.5) % Plt Count 313 (150-375) k/mm3 MPV 8.9 (7.4-10.4) fl Immature Gran % (Auto) 0.8 H (0-0.5) % Neut % (Auto) 79.4 H (45.5-73.1) % Lymph % (Auto) 8.5 L (18.3-44.2) % [place] % (Auto) 10.3 H (2.6-8.5) % Eos % (Auto) 0.6 (0-4.4) % Baso % (Auto) 0.4 (0.2-1.2) % Lymph # (Auto) 1.23 (0.9-3.2) K/mm3 [place] # (Auto) 1.5 H (0.1-0.6) K/mm3 Eos # (Auto) 0.1 (0-0.3) K/mm3 Baso # (Auto) 0.1 (0.0-0.1) K/mm3 Abs Immat Gran (auto) 0.11 H (0.00-0.031) K/mm3 Absolute Neuts (auto) 11.5 H (1.3-6.7) K/mm3 Absolute Nucleated RBC 0.000 (0.0-0.012) K/mm3 Nucleated RBC % 0.0 (0.0-0.2) % PT 19.5 H (11.1-14.7) Seconds INR 1.7 APTT 39.9 H (22.3-36.8) Seconds Sodium 135 L (137-145) mmol/L Potassium 3.9 (3.4-5.0) mmol/L Chloride 100 (98-107) mmol/L Carbon Dioxide 31 H (22-30) mmol/L Anion Gap 4 (4-12) mmol/L BUN 19 (9-20) mg/dL Creatinine 0.89 0.90 (0.7-1.3) mg/dL Estim Creat Clear Calc Not Reportable Not Reportable Estimated GFR > 60 > 60 (59 - ) Glucose 120 H (65-110) mg/dL Lactic Acid (0.7-2.0) mmol/L Calcium 9.5 (8.4-10.2) mg/dL Total Bilirubin 1.1 (0.2-1.3) mg/dL AST 41 (17-59) U/L ALT 13 (6-50) U/L Alkaline Phosphatase 131 H (38-126) U/L Troponin I 0.025 (0.000-0.034) ng/mL Total Protein 6.7 (6.3-8.2) g/dL Albumin 3.0 L (3.5-5.1) g/dL Urine Color Yellow (Yellow) Urine Appearance Clear (Clear) Urine pH 5.5 (5.0-9.0) Ur Specific [place] 1.034 (1.001-1.035) Urine Protein Negative (Negative) mg/dL Urine Glucose (UA) 3+ H (Negative) mg/dL Urine Ketones Negative (Negative) mg/dL Ur Blood (Man) Negative (Negative) Urine Nitrate Negative (Negative) Urine Bilirubin Negative (Negative) Urine Urobilinogen 2.0 H (<2.0) mg/dL Leukocyte Esterase Rfl Negative (Negative) RAMEZ/UL 05/11/25 05/12/25 Range/Units 19:03 08:20 WBC (4.5-10.0) K/mm3 RBC (4.6-6.20) M/mm3 Hgb (14.0-18.0) g/dL Hct (42.0-52.0) % MCV (80-100) fl MCH (26-34) pg MCHC (32-36) g/dl RDW (11.5-14.5) % Plt Count (150-375) k/mm3 MPV (7.4-10.4) fl Immature Gran % (Auto) (0-0.5) % Neut % (Auto) (45.5-73.1) % Lymph % (Auto) (18.3-44.2) % [place] % (Auto) (2.6-8.5) % Eos % (Auto) (0-4.4) % Baso % (Auto) (0.2-1.2) % Lymph # (Auto) (0.9-3.2) K/mm3 [place] # (Auto) (0.1-0.6) K/mm3 Eos # (Auto) (0-0.3) K/mm3 Baso # (Auto) (0.0-0.1) K/mm3 Abs Immat Gran (auto) (0.00-0.031) K/mm3 Absolute Neuts (auto) (1.3-6.7) K/mm3 Absolute Nucleated RBC (0.0-0.012) K/mm3 Nucleated RBC % (0.0-0.2) % PT (11.1-14.7) Seconds INR APTT (22.3-36.8) Seconds Sodium (137-145) mmol/L Potassium (3.4-5.0) mmol/L Chloride (98-107) mmol/L Carbon Dioxide (22-30) mmol/L Anion Gap (4-12) mmol/L BUN (9-20) mg/dL Creatinine 0.90 (0.7-1.3) mg/dL Estim Creat Clear Calc 96 Estimated GFR > 60 (59 - ) Glucose (65-110) mg/dL Lactic Acid 1.5 (0.7-2.0) mmol/L Calcium (8.4-10.2) mg/dL Total Bilirubin (0.2-1.3) mg/dL AST (17-59) U/L ALT (6-50) U/L Alkaline Phosphatase (38-126) U/L Troponin I (0.000-0.034) ng/mL Total Protein (6.3-8.2) g/dL Albumin (3.5-5.1) g/dL Urine Color (Yellow) Urine Appearance (Clear) Urine pH (5.0-9.0) Ur Specific [place] (1.001-1.035) Urine Protein (Negative) mg/dL Urine Glucose (UA) (Negative) mg/dL Urine Ketones (Negative) mg/dL Ur Blood (Man) (Negative) Urine Nitrate (Negative) Urine Bilirubin (Negative) Urine Urobilinogen (<2.0) mg/dL Leukocyte Esterase Rfl (Negative) RAMEZ/UL Discharge Plan Discharge Clinical Impression: Facial droop Altered mental status Qualifiers: Altered mental status type: unspecified Qualified Code(s): R41.82 - Altered mental status, unspecified Leukocytosis Qualifiers: Leukocytosis type: unspecified Qualified Code(s): D72.829 - Elevated white blood cell count, unspecified Patient Disposition: Acute Care Hospital Condition: Serious Patient Language: [place] Follow-up/Referrals: Clair,Kelly [Other]
[2025-05-12] MEDS: MORPHINE SULFATE (*CRX) 4 MG/ML INJ 2 MG IV PUSH (14:41)
--- NOTE | 2025-05-12 15:51 | PC.NURSE ---
Bed given at [facility] RM [id number] RN Silverio Tinoco [phone] for Report
== END 2025-05-12 17:00 | disposition short-term general hospital (02) ==
PROVIDERS: Emergency Provider Student in an Organized Health Care Education/Training Program
DX: R29.810 Facial weakness (principal); R41.82 Altered mental status, unspecified; D72.829 Elevated white blood cell count, unspecified; Z95.0 Presence of cardiac pacemaker; Z86.73 Personal history of transient ischemic attack (TIA), and cerebral infarction without residual deficits; Z79.01 Long term (current) use of anticoagulants; I50.9 Heart failure, unspecified
CPT/HCPCS: 36415; 70450; 70496; 70498; 71045; 80053; 81003; 82565; 82948; 83605; 84484; 85025; 85610; 85730; 87040; 93005; 96365; 96366; 96367; 96375; 99285; J2270; J2543; J3373; Q9967